=== PATIENT | male | born 1995 | race African-American/Black ===

== ENCOUNTER 2019-03-23 08:58 | Emergency (ER) | payer OTHER, MEDICAID, SELFPAY ==
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
[2019-03-23 09:11] VITALS: BP 166/92; PULSE 65; RESP 18; TEMP 36.3; O2SAT 100
[2019-03-23] MEDS: IBUPROFEN 400 MG TABLET 800 MG PO (09:52)
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
[2019-03-23 10:38] VITALS: BP 132/75; PULSE 78; RESP 16; O2SAT 100
== END 2019-03-23 10:39 | disposition home or self-care (01) ==
PROVIDERS: Emergency Provider Emergency Medicine
DX: S29.012A Strain of muscle and tendon of back wall of thorax, initial encounter (principal); S39.012A Strain of muscle, fascia and tendon of lower back, initial encounter; V49.40XA Driver injured in collision with unspecified motor vehicles in traffic accident, initial encounter
CPT/HCPCS: 72072; 72100; 99283; A9270

== ENCOUNTER 2019-10-04 12:08 | Emergency (ER) | payer OTHER, MEDICAID, SELFPAY ==
[2019-10-04 12:12] VITALS: BP 144/85; PULSE 80; RESP 16; TEMP 36.6; O2SAT 98
[2019-10-04] MEDS: LIDO 1%/EPINEPHRINE 1:100,000 20 ML VIAL INFILTRATE (13:20)
--- NOTE | 2019-10-04 14:21 | ED.WOUNDLAC ---
HPI - Wound/Laceration General Chief Complaint: Wound/Laceration <Shahla Smith PA-C - Last Filed: 10/04/19 14:29> Stated Complaint: boil on butt <Shahla Smith PA-C - Last Filed: 10/04/19 14:29> Time Seen by Provider: 10/04/19 12:20 <Shahla Smith PA-C - Last Filed: 10/04/19 14:29> Source: patient <Shahla Smith PA-C - Last Filed: 10/04/19 14:29> Mode of arrival: ambulatory <Shahla Smith PA-C - Last Filed: 10/04/19 14:29> Limitations: no limitations <Shahla Smith PA-C - Last Filed: 10/04/19 14:29> History of Present Illness HPI narrative: This is a 24 year old male that presents to the ER for right buttock abscess x 2 days. Reports history of abscesses in this area. Denies fever or drainage. <Shahla Smith PA-C - Last Filed: 10/04/19 14:29> Related Data Allergies/Adverse Reactions: Allergies Allergy/AdvReac Type Severity Reaction Status Date / Time No Known Allergies Allergy Verified 10/04/19 12:14 <Shahla Smith PA-C - Last Filed: 10/04/19 14:29> Review of Systems Review of Systems: Narrative: CONSTITUTIONAL: Denies fever SKIN: Reports abscess <Shahla Smith PA-C - Last Filed: 10/04/19 14:29> All systems reviewed & are unremarkable except as noted in HPI and below <Shahla Smith PA-C - Last Filed: 10/04/19 14:29> PMFSH Social History Social History: Social History (Updated 03/23/19 @ 10:35 by Gary Starkey PA-C) Smoking status: Never smoker Substance use type: does not use Gender identity (if verbalized by the patient): Male <Shahla Smith PA-C - Last Filed: 10/04/19 14:29> Exam Narrative: Exam Narrative: GENERAL: Well-appearing, well-nourished, and in no acute distress. HEAD: Normocephalic, atraumatic. EYES: EOMI. EXTREMITIES: Normal range of motion. No edema. SKIN: Warm, dry. Right buttock with 5cm area of edema with central fluctuance NEURO: No focal deficits. Alert and oriented x3. PSYCH: Normal mood and affect <Shahla Smith PA-C - Last Filed: 10/04/19 14:29> Course Vital Signs Vital signs: Vital Signs Temperature 36.6 C 10/04/19 12:12 Pulse Rate 80 10/04/19 12:12 Respiratory Rate 16 10/04/19 12:12 Blood Pressure 144/85 H 10/04/19 12:12 Pulse Oximetry 98 10/04/19 12:12 Temperature 36.6 C 10/04/19 12:12 Pulse Rate 80 10/04/19 12:12 Respiratory Rate 16 10/04/19 12:12 Blood Pressure 144/85 H 10/04/19 12:12 Pulse Oximetry 98 10/04/19 12:12 <TONIA Shukla Last Filed: 10/04/19 14:29> Vital Signs Temperature 36.6 C 10/04/19 12:12 Pulse Rate 80 10/04/19 12:12 Respiratory Rate 16 10/04/19 12:12 Blood Pressure 144/85 H 10/04/19 12:12 Pulse Oximetry 98 10/04/19 12:12 Temperature 36.6 C 10/04/19 12:12 Pulse Rate 80 10/04/19 12:12 Respiratory Rate 16 10/04/19 12:12 Blood Pressure 144/85 H 10/04/19 12:12 Pulse Oximetry 98 10/04/19 12:12 <Sonia Ruiz MD - Last Filed: 10/04/19 14:55> Procedures Abscess I/D other: Date of Incision: 10/04/19 <Shahla Smith PA-C - Last Filed: 10/04/19 14:29> Time of Incision: 14:26 <TONIA Shukla Last Filed: 10/04/19 14:29> Side (if applicable): right <Shahla Smith PA-C - Last Filed: 10/04/19 14:29> Local Anesthetic: lidocaine 1% and with epi <Shahla Smith PA-C - Last Filed: 10/04/19 14:29> Amount of anesthesia used (mL): 5 <TONIA Shukla Last Filed: 10/04/19 14:29> Technique: incised with #11 blade <TONIA Shukla Last Filed: 10/04/19 14:29> Packing used?: plain <TONIA Shukla Last Filed: 10/04/19 14:29> I&D Results: Pus, Blood and Other (loculations broken up) <TONIA Shukla Last Filed: 10/04/19 14:29> Complications: other (no complications) <TONIA Shukla Last Filed: 10/04/19 14:2
== END 2019-10-04 14:51 | disposition home or self-care (01) ==
PROVIDERS: Emergency Provider Emergency Medicine; PCP Nurse Practitioner Family
DX: L02.31 Cutaneous abscess of buttock (principal)
CPT/HCPCS: 10060; 99283

== ENCOUNTER 2019-10-06 11:35 | Emergency (ER) | payer OTHER, MEDICAID, SELFPAY ==
[2019-10-06 11:38] VITALS: BP 148/84; PULSE 65; RESP 20; TEMP 37.1; O2SAT 100
--- NOTE | 2019-10-06 11:49 | ED.SKABFB ---
HPI - Skin/Abscess/Foreign Bdy General Chief complaint: Skin/Abscess/Foreign Body Stated complaint: needs gauze packing removed Time Seen by Provider: 10/06/19 11:43 Source: patient Mode of arrival: ambulatory Limitations: no limitations History of Present Illness HPI narrative: This is a 24-year-old male that presents the emergency department for packing removal. I drained an abscess on his buttock 2 days ago. Patient reported again today because he would like the packing removed. Denies fevers. Related Data Allergies Allergy/AdvReac Type Severity Reaction Status Date / Time No Known Allergies Allergy Verified 10/04/19 12:14 Review of Systems Review of Systems: Narrative: CONSTITUTIONAL: Denies fever SKIN: Reports abscess All systems reviewed & are unremarkable except as noted in HPI and below PMFSH Social History Social History (Updated 03/23/19 @ 10:35 by Gary Starkey PA-C) Smoking status: Never smoker Substance use type: does not use Gender identity (if verbalized by the patient): Male Exam Narrative: Exam Narrative: GENERAL: Well-appearing, well-nourished, and in no acute distress. HEAD: Normocephalic, atraumatic. EYES: EOMI. EXTREMITIES: Normal range of motion. No edema. SKIN: Warm, dry. Right buttock wound with packing in place. No surrounding erythema or edema NEURO: No focal deficits. Alert and oriented x3. PSYCH: Normal mood and affect Course Vital Signs Vital signs: Vital Signs Temperature 98.7 F 10/06/19 11:38 Pulse Rate 65 10/06/19 11:38 Respiratory Rate 20 10/06/19 11:38 Blood Pressure 148/84 H 10/06/19 11:38 Pulse Oximetry 100 10/06/19 11:38 Temperature 98.7 F 10/06/19 11:38 Pulse Rate 65 10/06/19 11:38 Respiratory Rate 20 10/06/19 11:38 Blood Pressure 148/84 H 10/06/19 11:38 Pulse Oximetry 100 10/06/19 11:38 MDM - Skin/Abscess/Foreign Bdy MDM Narrative Medical decision making narrative: Patient presents to the emergency department for packing removal. I saw patient 2 days ago for an abscess to the buttock. Patient is afebrile and nontoxic-appearing. Wound with much improvement, no continued edema or erythema. Packing was removed and bandage placed. Patient was instructed on continued wound care. He was instructed to finish his antibiotics as prescribed. He is to follow-up with his primary care doctor. He was given warnings to return to the ER Critical Care Time Critical Care Time Critical Care Time: No Discharge Plan Discharge Clinical Impression: Visit for wound check Abscess of skin or subcutaneous tissue Qualifiers: Site of cutaneous abscess: buttock Qualified Code(s): L02.31 - Cutaneous abscess of buttock Patient Disposition: Home, Self-Care Condition: Stable Instructions: Antibiotic Form, Abscess (ED) Additional Instructions: Return to the emergency department if you experience fever, redness and swelling of your wound, or any other symptoms that are concerning to you Finish antibiotics as directed. Clean wound with mild soapy water. Apply antibiotic ointment and clean dressing at least three times daily. Warm compresses 3 times a day for 30 minutes each Follow up with primary care for re-evaluation Prescriptions: No Action sulfamethoxazole-trimethoprim [Bactrim DS] 800-160 mg tablet 1 tablet PO Q12H 7 Days Qty: 14 RF: 0 Follow-up/Referrals: Bhavya,Lady P, GEOSPATIAL SCIENTIST [Non-Staff] - 1 Week
[2019-10-06 12:09] VITALS: BP 138/62; PULSE 72; RESP 18; O2SAT 99
== END 2019-10-06 12:11 | disposition home or self-care (01) ==
PROVIDERS: Emergency Provider Emergency Medicine
DX: L02.31 Cutaneous abscess of buttock (principal)
CPT/HCPCS: 99281

== ENCOUNTER 2020-06-29 13:26 | Emergency (ER) | payer OTHER, MEDICAID, SELFPAY ==
[2020-06-29 13:34] VITALS: BP 153/83; PULSE 76; RESP 18; TEMP 36.8; O2SAT 100
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
[2020-06-29] MEDS: IBUPROFEN 600 MG TABLET PO (15:24)
== END 2020-06-29 15:25 | disposition home or self-care (01) ==
PROVIDERS: Emergency Provider Emergency Medicine
DX: L73.2 Hidradenitis suppurativa (principal)
CPT/HCPCS: 10060; 87070; 87075; 87147; 87186; 87205; 99283; A9270

== ENCOUNTER 2020-12-20 21:31 | Emergency (ER) | payer OTHER, MEDICAID, SELFPAY ==
--- NOTE | ~2020-12-20 | XR_ITS ---
LUMBAR SPINE INDICATION: Low back pain TECHNIQUE: 5 views lumbar spine COMPARISON: 03/23/2019 FINDINGS: No fracture, subluxation or dislocation. No evidence for spondylolysis or spondylolisthesi s. Vertebral bodies and disk spaces are preserved. IMPRESSION: 1: No significant abnormality of the lumbar spine identified. Reviewed, dictated and finalized at location A.
[2020-12-20 21:42] VITALS: BP 150/70; PULSE 80; RESP 18; TEMP 36.8; O2SAT 100
--- NOTE | 2020-12-20 22:29 | ED.BACK ---
HPI - Back Pain/Injury General Chief Complaint: Back Pain/Injury Stated Complaint: lower back injury Time Seen by Provider: 12/20/20 22:05 Source: patient Mode of arrival: ambulatory Limitations: no limitations History of Present Illness HPI Narrative: 25-year-old with no major medical problems here with complaints of low back pain since yesterday. Patient states that he woke up with the pain. He denies any trauma or lifting heavy objects. However patient states that been getting intermittent low back pain for last several months. No history of bladder or bowel incontinence. MD elicited complaint: back pain Pertinent past history: prior back pain Onset (ago): day(s) (1) Timing: constant Severity: moderate Similar Symptoms Previously: Yes Quality: aching Location: lumbar spine Radiation: none Exacerbating factors: movement Relieving factors: none Associated symptoms: denies other symptoms Related Data Allergies Allergy/AdvReac Type Severity Reaction Status Date / Time No Known Allergies Allergy Verified 12/20/20 22:29 Review of Systems Review of Systems: All systems reviewed & are unremarkable except as noted in HPI and below Constitutional: Constitutional: Reports no additional constitutional complaints Eyes: Eyes: Reports no additional eye complaints ENT: Reports system reviewed and no additional complaints, except as documented Cardiovascular: Cardiovascular: Reports no additional cardiovascular complaints Respiratory: Respiratory: Reports no additional respiratory complaints Gastrointestinal: Gastrointestinal: Reports no additional gastrointestinal complaints Musculoskeletal: Musculoskeletal: Reports as per HPI Neurologic: Reports system reviewed and no additional complaints, except as documented PMFSH Social History Social History Smoking status: Never smoker Alcohol use details: occassional- once a month or less Substance use type: does not use Gender identity (if verbalized by the patient): Male Exam Narrative: GENERAL: Well-appearing, well-nourished, and in no acute distress. HEAD: Normocephalic, atraumatic. EYES: PERRLA and EOMI. NECK: Supple. CHEST: Clear to auscultation. No respiratory distress. HEART: Regular rate and rhythm. No murmur heard. Normal peripheral pulses. ABDOMEN: Soft, nontender, nondistended, normal active bowel sounds. EXTREMITIES: Normal range of motion. No edema. Back no vertebral point tenderness, SLR negative on both sides SKIN: Warm, dry, no rash. NEURO: No focal deficits. Alert and oriented x3. PSYCH: Normal mood and affect. Course Vital Signs Vital signs: Vital Signs Temperature 36.8 C 12/20/20 21:42 Pulse Rate 80 12/20/20 21:42 Respiratory Rate 18 12/20/20 21:42 Blood Pressure 150/70 H 12/20/20 21:42 Pulse Oximetry 100 12/20/20 21:42 Temperature 36.8 C 12/20/20 21:42 Pulse Rate 80 12/20/20 21:42 Respiratory Rate 18 12/20/20 21:42 Blood Pressure 150/70 H 12/20/20 21:42 Pulse Oximetry 100 12/20/20 21:42 MDM - Back Pain/Injury Differential Diagnosis Differential diagnosis: Likely lumbar radiculopathy and strain of lumbar region Imaging Data Radiologist's impression: ITS Impressions Lumbar Spine X-Ray 12/20/20 22:31 IMPRESSION: 1: No significant abnormality of the lumbar spine identified. Discharge Plan Discharge Clinical Impression: Strain of lumbar region Qualifiers: Encounter type: initial encounter Qualified Code(s): S39.012A - Strain of muscle, fascia and tendon of lower back, initial encounter Patient Disposition: Home, Self-Care Condition: Stable Instructions: Antibiotic Form, Back Pain (ED) Prescriptions: New naproxen 500 mg tablet 500 mg PO BID Qty: 14 RF: 0 cyclobenzaprine 5 mg tablet 5 mg PO TID PRN (Reason: muscle spasm) Qty: 20 RF: 0 No Action sulfamethoxazole-trimethoprim [Bactrim DS] 800-
== END 2020-12-20 22:45 | disposition home or self-care (01) ==
PROVIDERS: Emergency Provider Family Medicine
DX: S39.012A Strain of muscle, fascia and tendon of lower back, initial encounter (principal); X58.XXXA Exposure to other specified factors, initial encounter
CPT/HCPCS: 72110; 99283

== ENCOUNTER 2021-01-25 16:30 | Emergency (ER) | payer OTHER, MEDICAID, SELFPAY ==
[2021-01-25 16:32] VITALS: BP 180/91; PULSE 91; RESP 17; TEMP 36.5; O2SAT 99
[2021-01-25 18:00] VITALS: BP 167/80; PULSE 90; RESP 18; TEMP 37.1; O2SAT 99
--- NOTE | 2021-01-25 18:03 | ED.BACK ---
HPI - Back Pain/Injury General Chief Complaint: Back Pain/Injury Stated Complaint: back pain Time Seen by Provider: 01/25/21 18:03 Source: patient Mode of arrival: ambulatory Limitations: no limitations History of Present Illness HPI Narrative: Patient is a 25-year-old male who returns for evaluation of chronic back pain. Patient states that his pain is not severe. Patient states his pain is mild. No radiation of the pain. Pain is dull, aching in nature, worse with bending or heavy lifting. He is ambulatory. He denies recurrent fall or injury. Patient states that he lifts very heavy boxes at work which exacerbates his pain. Patient states that he is here to obtain a work note and would like a prescription for muscle relaxers. Patient has no saddle anesthesia. No bowel or bladder dysfunction or urinary incontinence. No focal weakness or numbness in the lower extremities. Patient states that he has not been taking Tylenol or ibuprofen. Patient also states he would like a work note stating that he cannot lift heavy boxes at work. When questioned why the patient does not obtain a primary care physician, he states that he does not know. Patient denies any urinary symptoms. No history of cancer. Patient states that he is not having any difficulty walking. He denies any frontal abdominal pain, chest pain, shortness of breath or other symptoms. No fever or chills. Related Data Allergies Allergy/AdvReac Type Severity Reaction Status Date / Time No Known Allergies Allergy Verified 12/20/20 22:29 Review of Systems Review of Systems: CONSTITUTIONAL: Denies fever CARDIOVASCULAR: Denies chest pain RESPIRATORY: Denies cough or dyspnea. GASTROINTESTINAL: Denies abdominal pain SKIN: Denies rash MUSCULOSKELETAL: Reports lower back pain NEUROLOGIC: Denies headache [facility] Past Medical History Medical History (Updated 01/25/21 @ 18:25 by Sonia Ruiz MD) Chronic back pain Social History Social History Smoking status: Never smoker Alcohol use details: occassional- once a month or less Substance use type: does not use Gender identity (if verbalized by the patient): Male Exam Narrative: GENERAL: Awake, alert, conversant HEAD: Normocephalic, atraumatic. EYES: PERRLA and EOMI. ENT: Nares clear, no rhinorrhea or epistaxis. Mucous membranes moist. NECK: Supple. CHEST: No respiratory distress, breathing even and non labored HEART: Regular rate, sinus rhythm ABDOMEN:Non distended, non tender EXTREMITIES: Normal range of motion. No edema. Thorax: No midline cervical or thoracic pain. No midline lumbar pain. No significant thoracic or lumbar paraspinal pain. Pt ambulatory in room. Strength bilateral lower extremities is 5/5. No ataxia. No foot drop. SKIN: Warm, dry, no rash. NEURO:No focal deficits. Alert and oriented x3 Course Vital Signs Vital signs: Vital Signs Temperature 36.5 C 01/25/21 16:32 Pulse Rate 91 01/25/21 16:32 Respiratory Rate 17 01/25/21 16:32 Blood Pressure 180/91 H 01/25/21 16:32 Pulse Oximetry 99 01/25/21 16:32 Temperature 37.1 C 01/25/21 18:00 Pulse Rate 90 01/25/21 18:00 Respiratory Rate 18 01/25/21 18:00 Blood Pressure 167/80 H 01/25/21 18:00 Pulse Oximetry 99 01/25/21 18:00 MDM - Back Pain/Injury MDM Narrative Medical decision making narrative: Given History and Exam the patient appears to be at low risk for Spinal Cord Compression Syndrome, Vertebral Malignancy/Mets, acute Spinal Fracture, Vertebral Osteomyelitis, Epidural Abscess, Infected or Obstructing Kidney Stone. Their presentation appears most likely to be secondary to non-emergent musculoskeletal etiology vs non-emergent disc herniation. Pain is reproducible, and patient has no other high risk factors such as history of malignancy, weight loss, infectious symptoms. ED Workup: Labwork for outpatient follow up at this time. I do not fe
== END 2021-01-25 18:51 | disposition home or self-care (01) ==
PROVIDERS: Emergency Provider Emergency Medicine
DX: S39.012A Strain of muscle, fascia and tendon of lower back, initial encounter (principal); M54.9 Dorsalgia, unspecified; G89.29 Other chronic pain; X58.XXXA Exposure to other specified factors, initial encounter
CPT/HCPCS: 99283

== ENCOUNTER 2021-05-18 13:11 | Emergency (ER) | payer OTHER, MEDICAID, SELFPAY ==
[2021-05-18 13:13] VITALS: BP 152/86; PULSE 76; RESP 16; TEMP 36.8; O2SAT 100
--- NOTE | 2021-05-18 13:44 | ED.URI ---
HPI - URI/Sore Throat General Chief Complaint: Upper Respiratory Infection Stated Complaint: cough, work note Time Seen by Provider: 05/18/21 13:21 Source: patient Mode of arrival: ambulatory Limitations: no limitations History of Present Illness HPI Narrative: 26-year-old male presents today with complaints of cough, sore throat for 5 days. Patient states recent contact with flu positive person. Patient denies fever, nausea, abdominal pain, diarrhea, body aches, or fever. Patient states he wants to know if he has the flu, Covid, and needs a work note. Related Data Allergies Allergy/AdvReac Type Severity Reaction Status Date / Time No Known Allergies Allergy Verified 12/20/20 22:29 Review of Systems Review of Systems: CONSTITUTIONAL: Denies fever, chills, or sweats. EYES: Denies visual changes, redness, or discharge. ENT: Sore throat. Denies rhinorrhea, congestion, or otalgia. CARDIOVASCULAR: Denies chest pain, palpitations, or edema. RESPIRATORY: Cough. Denies dyspnea. GASTROINTESTINAL: Denies abdominal pain, nausea, vomiting, or diarrhea. GENITOURINARY: Denies dysuria or hematuria. SKIN: Denies rash or itching. MUSCULOSKELETAL: Denies back pain, joint pain, or myalgia. NEUROLOGIC: Denies headache, numbness, dizziness, or weakness. PSYCHIATRIC: Denies anxiety or depression. [facility] Past Medical History Medical History (Updated 05/18/21 @ 14:27 by Macrina Smith APRN) Chronic back pain Social History Social History Smoking status: Never smoker Alcohol use details: occassional- once a month or less Substance use type: does not use Gender identity (if verbalized by the patient): Male Exam Narrative: GENERAL: Well-appearing, well-nourished, and in no acute distress. HEAD: Normocephalic, atraumatic. EYES: PERRLA and EOMI. ENT: Nares clear, no rhinorrhea or epistaxis. Mucous membranes moist. Oropharynx without tonsillar hypertrophy exudate or other lesions. Bilateral TMs pearly malcolm nonbulging NECK: Supple. No adenopathy or masses. No carotid bruits or JVD CHEST: Clear to auscultation. No respiratory distress. No wheezes rales or rhonchi HEART: Regular rate and rhythm. No murmur heard. Normal peripheral pulses. ABDOMEN: Soft, nontender, nondistended, normal active bowel sounds. EXTREMITIES: Normal range of motion. No edema. SKIN: Warm, dry, no rash. NEURO: No focal deficits. Alert and oriented x3. PSYCH: Normal mood and affect. Course Vital Signs Vital signs: Vital Signs Temperature 36.8 C 05/18/21 13:13 Pulse Rate 76 05/18/21 13:13 Respiratory Rate 16 05/18/21 13:13 Blood Pressure 152/86 H 05/18/21 13:13 Pulse Oximetry 100 05/18/21 13:13 Temperature 36.8 C 05/18/21 13:13 Pulse Rate 76 05/18/21 13:13 Respiratory Rate 16 05/18/21 13:13 Blood Pressure 152/86 H 05/18/21 13:13 Pulse Oximetry 100 05/18/21 13:13 MDM - URI/Sore Throat Differential Diagnosis Differential diagnosis: Likely upper respiratory infection, viral infection, influenza and other (Covid) Lab Data Attestation: I reviewed the patient's lab results. Labs: Lab Results 05/18/21 Range/Units 14:16 SARS-CoV-2 RNA (RT-PCR) Negative Influenza A Screen Negative Reference Range: Negative Influenza B Screen Negative Reference Range: Negative Discharge Plan Discharge Clinical Impression: Upper respiratory infection Qualifiers: URI type: unspecified viral URI Qualified Code(s): J06.9 - Acute upper respiratory infection, unspecified Patient Disposition: Home, Self-Care Condition: Stable Instructions: Antibiotic Form, Upper Respiratory Infection (DC) Additional Instructions: you negative for flu today. Covid is pending you should get the results later today. Please look on my chart for the re
[2021-05-18 15:13] LABS: SARS-CoV-2 RNA PCR Negative
== END 2021-05-18 14:30 | disposition home or self-care (01) ==
PROVIDERS: Emergency Provider Nurse Practitioner Family
DX: J06.9 Acute upper respiratory infection, unspecified (principal); Z20.822 Contact with and (suspected) exposure to COVID-19
CPT/HCPCS: 87804; 99283; C9803; U0003; U0005